=== PATIENT | male | born 1985 | race Caucasian/White ===

== ENCOUNTER 2023-11-28 10:05 | Emergency (ER) | payer OTHER ==
[2023-11-28 10:12] VITALS: RESP 18
--- NOTE | 2023-11-28 10:32 | ED ---
Lower Extremity Injury HPI - General Chief Complaint: Extremity Injury, Lower Stated Complaint: Left ankle injury Time Seen by Provider: 11/28/23 10:27 Source: patient, RN notes reviewed Mode of arrival: ambulatory Limitations: no limitations - History of Present Illness Initial Comments: 38-year-old male presented to the ER with a chief complaint of right ankle injury. Patient reports he was playing baseball last night and while running to the base he accidentally twisted his right ankle when tagging the base. He reports it has been swollen and tender to the medial mallelous since. He reports difficultly walking as he is unable to bear weight due to the pain. He took Voltaren last night for pain control. He denies any paresthesias or other inj uries. - Related Data Allergies Allergy/AdvReac Type Severity Reaction Status Date / Time No Known Allergies Allergy Verified 11/28/23 10:09 Review of Systems ROS Statement: Those systems with pertinent positive or pertinent negative responses have been documented in the HPI. ROS Other: All systems not noted in ROS Statement are negative. Past Medical History Past Medical History: Hyperlipidemia Past Surgical History: Orthopedic Surgery Additional Past Surgical History / Comment(s): right ankle Past Psychological History: No Psychological Hx Reported Smoking Status: Former smoker Past Alcohol Use History: Occasional Past Drug Use History: None Reported General Exam Limitations: no limitations General appearance: alert, in no apparent distress Respiratory exam: Present: normal lung sounds bilaterally. Absent: respiratory distress, wheezes, rales, rhonchi, stridor Cardiovascular Exam: Present: regular rate, normal rhythm, normal heart sounds. Absent: systolic murmur, diastolic murmur, rubs, gallop, clicks Extremities exam: Present: tenderness (Right medial malleolus. 2+ right dorsalis pedis pulse. Sensation intact. Edema to right ankle. No bruising present. Pain with eversion of ankle.), other (Win test intact. Patient has full active range of motion of ankle, knee and digits) Neurological exam: Present: alert, oriented X3, CN II-XII intact Skin exam: Present: warm, dry, intact, normal color. Absent: rash Course Vital Signs 11/28/23 11/28/23 10:09 11:28 Temperature 97.8 F 98 F Pulse Rate 65 62 Respiratory 18 18 Rate Blood Pressure 136/83 130/79 O2 Sat by Pulse 95 96 Oximetry Medical Decision Making - Medical Decision Making Was pt. sent in by a medical professional or institution ([facility], [facility], urgent care, hospital, or [facility]...) When possible be specific @ -No Did you speak to anyone other than the patient for history (EMS, parent, family, police, friend...)? What history was obtained from this source @ -No Did you review nursing and triage notes (agree or disagree)? Why? @ -I reviewed and agree with nursing and triage notes Were old charts reviewed (outside hosp., previous admission, EMS record, old EKG, old radiological studies, urgent care reports/EKG's, [facility] records)? Report findings @ -No old charts were reviewed Differential Diagnosis (chest pain, altered mental status, abdominal pain women, abdominal pain men, vaginal bleeding, weakness, fever, dyspnea, syncope, headache, dizziness, GI bleed, back pain, seizure, CVA, palpatations, mental health, musculoskeletal)? @ -Differential Musculoskeletal: Muscular strain, contusion, ligament sprain, fracture, arthritis, septic arthritis, bursitis, cellulitis, muscle spasm, nerve compression, DVT, arterial occlusion, herpes zoster, electrolyte abnormality, tumor.... This is not meant to be in all inclusive list EKG interpreted by me (3pts min.). @ -None X-rays interpreted by me (1pt min.). @ -Left ankle x-ray interpreted by me negative for acute fractures or dislocations. CT interpreted by me (1pt min.). @ -None done U/S interpreted by me (1pt. min.). @ -None done What testing was considered but not performed or refused? (CT, X-rays, U/S, labs)? Why? @ -None What meds were considered but not given or refused? Why? @ -Patient refused analgesic medications. Did you discuss the management of the patient with other professionals (prof princess i.e. STACY Ferreira, [facility], lab, RT, psych nurse, social media executive, web consultant, teacher, chief operations officer, disability case manager)? Give summary @ -No Was smoking cessation discussed for >3mins.? @ -No Was critical care preformed (if so, how long)? @ -No Were there social determinants of health that impacted care today? How? (Homelessness, low income, unemployed, alcoholism, drug addiction, transportation, low edu. Level, literacy, decrease access to med. care, skilled nursing, rehab)? @ -No Was there de-escalation of care discussed even if they declined (Discuss DNR or withdrawal of care, Hospice)? DNR status @ -No What co-morbidities impacted this encounter? (DM, HTN, Smoking, COPD, CAD, Cancer, CVA, ARF, Chemo, Hep., AIDS, mental health diagnosis, sleep apnea, morbid obesity)? @ -None Was patient admitted / discharged? Hospital course, mention meds given and route, prescriptions, significant lab abnormalities, going to OR and other pertinent info. @ -Discharge. 38-year-old male presented to ER with a chief complaint of left ankle injury. History and physical exam completed. Vitals stable. Left lower extremity neurovascular intact. There is mild edema to left ankle. No bruising, erythema or rashes present. No calf tenderness. No evidence of Achilles rupture. X-rays obtained negative for acute process. Patient refused analgesic medications. Upon reevaluation, patient resting comfortably in exam room in no signs of acute distress. Results discussed with patient, all questions answered. Patient placed in an ankle stirrup. Crutches prescribed. Return parameters discussed. Recommended rest, ice, elevation, compression and [id number] analgesics for symptom control at home. Patient discharged in stable condition with follow-up to orthopedics, referral given. Patient verbal expressed understanding and agreement with care plan. Case discussed with ED attending, Dr. Chicas. Undiagnosed new problem with uncertain prognosis? @ -No Drug Therapy requiring intensive monitoring for toxicity (Heparin, Nitro, Insulin, Cardizem)? @ -No Were any procedures done? @ -No Diagnosis/symptom? @ -Ankle sprain Acute, or Chronic, or Acute on Chronic? @ -Acute Uncomplicated (without systemic symptoms) or Complicated (systemic symptoms)? @ -Uncomplicated Side effects of treatment? @ -No Exacerbation, Progression, or Severe Exacerbation? @ -No Poses a threat to life or bodily function? How? (Chest pain, [place], HI, pneumonia, PE, COPD, DKA, ARF, appy, cholecystitis, CVA, Diverticulitis, Homicidal, Suicidal, threat to staff... and all critical care pts) @ -No - Radiology Data Radiology results: report reviewed, image reviewed Disposition Clinical Impression: Ankle sprain Disposition: HOME SELF-CARE Condition: Stable Instructions (If sedation given, give patient instructions): Ankle Sprain (ED) Additional Instructions: I recommend ice, rest, compression and elevation. You may take [id number] Tylenol and Motrin for pain control. Follow-up with orthopedics. Return to the ER for any new or worsening concerns. Is patient prescribed a controlled substance at d/c from ED?: No Referrals: None,Stated [Primary Care Provider] - 1-2 days Jonatan Salazar DO [Doctor of Osteopathic Medicine] - 1-2 days Forms: Area PCPs Time of Disposition: 11:12
--- NOTE | 2023-11-28 11:00 | XR ---
EXAMINATION TYPE: XR ankle complete 3 views LT DATE OF EXAM: 11/28/2023 Comparison: None Clinical History: 38-year-old male medial ankle pain and swelling after baseball injury Findings: There is circumferential soft tissue swelling at the ankle including laterally. Ankle mortise appears congruent with preservation of the distal tibiofibular overlap. Talar dome appears intact. No acute fracture, subluxation, dislocation seen. Impression: Circumferential soft tissue swelling. No acute osseous abnormality seen. Consider soft tissue injury/ ligamentous sprain.
[2023-11-28 11:29] VITALS: BP 130/79; PULSE 62; TEMP 98
== END 2023-11-28 11:28 | disposition home or self-care (01) ==
LOC: EC 10:05
DX: S93.401A Sprain of unspecified ligament of right ankle, initial encounter (principal); Z87.891 Personal history of nicotine dependence; W50.2XXA Accidental twist by another person, initial encounter; Y93.67 Activity, basketball
CPT/HCPCS: 99283